=== PATIENT | female | born 1980 | race Asian ===

== ENCOUNTER 2019-11-04 05:39 | Emergency (ER) | payer OTHER ==
[~2019-11-04] VITALS: Ht 154.9 cm; Wt 56.7 kg
--- NOTE | 2019-11-04 05:46 | NUR ---
PT BIB [facility] WITH A C/O WITNESSED SYNCOPE X 3 THIS MORNING. PT STATED THAT SHE RAN 18 MILES ON MONDAY. PT'S RESTING HR IS 50 AND BP IS 97/54. PT IS ON THE MONITOR AND CONTINUOUS PULSE OX. RESP ARE EVEN AND UNLABORED. VSS.
--- NOTE | 2019-11-04 06:08 | NUR ---
DR JARQUIN IS AT THE BEDSIDE.
[2019-11-04] MEDS ORDERED: IV NS 0.9% 1,000 ML BAG IV ONE (06:30)
--- NOTE | 2019-11-04 06:37 | NUR ---
EKG DONE AT THE BEDSIDE.
--- NOTE | 2019-11-04 06:39 | NUR ---
CALLED LAB RE: BLOOD DRAW.
--- NOTE | 2019-11-04 06:39 | NUR ---
XRAY IN PROGRESS AT THE BEDSIDE.
--- NOTE | 2019-11-04 06:45 | NUR ---
blood draw at the bedside.
[2019-11-04 06:56] LABS: BASOPHILS % (AUTO) 0.5 % (0.0-2.0); EOSINOPHILS % (AUTO) 1.1 % (0.0-6.0); HEMATOCRIT 37 % (33-45); HEMOGLOBIN 12.3 g/dL (11.5-14.8); LYMPHOCYTES # (AUTO) 2.5 /CMM (0.8-4.8); LYMPHOCYTES % (AUTO) 26.9 % (20.0-44.0); MEAN CORPUSCULAR HGB CONC 33 g/dl (31.0-36.0); MEAN CORPUSCULAR VOLUME 90 fL (82-100); MONOCYTES # (AUTO) 0.6 /CMM (0.1-1.30); NEUTROPHILS # (AUTO) 5.9 /CMM (1.8-8.9); NEUTROPHILS % (AUTO) 64.5 % (43.0-81.0); PLATELET COUNT (AUTO) 261 /CMM (150-450); WHITE BLOOD COUNT (AUTO) 9.2 K/uL (4.3-11.0)
--- NOTE | 2019-11-04 07:01 | NUR ---
PT REC'D AN ORANGE JUICE AND IS TOLERATING PO WELL.
[2019-11-04 07:04] LABS: CALCIUM, SERUM 8.7 mg/dL (8.5-10.1); CARBON DIOXIDE 24 mmol/L (21-32); CHLORIDE 108 mmol/L (98-107); CREATININE 0.9 mg/dL (0.6-1.3); GLUCOSE 96 mg/dL (74-106); POTASSIUM 4.1 mmol/L (3.5-5.1); SODIUM SERUM 143 mmol/L (136-145); UREA NITROGEN, BLOOD 16 mg/dL (7-18)
--- NOTE | 2019-11-04 07:28 | NUR ---
IV removed. Catheter intact and site benign. Pressure and 4x4 applied to site. No bleeding noted. Patient discharged to home in stable condition. Written and verbal after care instructions given. Patient verbalizes understanding of instruction. PT AMBULATED OUT WITH A STEADY GAIT. VSS. PT'S IS DRIVING PT HOME.
[2019-11-04 07:29] VITALS: BP 113/68
== END 2019-11-04 07:29 | disposition home or self-care (01) ==
LOC: ER 05:40
DX: S00.83XA Contusion of other part of head, initial encounter (principal); R55 Syncope and collapse; W19.XXXA Unspecified fall, initial encounter; Y93.89 Activity, other specified; Y92.89 Other specified places as the place of occurrence of the external cause; Y99.8 Other external cause status
CPT/HCPCS: 36415; 71045; 80048; 84484; 84702; 85025; 93005; 96360; 99284; J7030